=== PATIENT | male | born 1955 | race Caucasian/White ===

== ENCOUNTER 2023-12-03 22:33 | Emergency (ER) | payer BC ==
[2023-12-03] MEDS: SODIUM CHLORIDE 0.9% 1,000 ML IV STA (23:40)
[2023-12-03] MEDS: METOCLOPRAMIDE 10 MG/2 ML VIAL IVP STA (23:40)
[2023-12-03] MEDS: diphenhydrAMINE INJ 50 MG/ML VIAL IVP STA (23:40)
[2023-12-03] MEDS ORDERED: iohexoL-300 100 ML VIAL ONE (23:42)
[2023-12-03 23:43] LABS: BASOPHILS % (AUTO) 0.3 %; EOSINOPHILS % (AUTO) 0.3 %; HCT - HEMATOCRIT 35.5 % (42.0-52.0); HGB - HEMOGLOBIN 12.8 g/dL (14.0-18.0); LYMPHOCYTES # (AUTO) 0.7 10^3/uL (1.5-3.5); LYMPHOCYTES % (AUTO) 11.6 %; MEAN CORPUSCULAR HEMOGLOBIN 32.7 pg (27.0-31.0); MEAN CORPUSCULAR HGB CONC 36.1 g/dL (32.0-36.0); MEAN CORPUSCULAR VOLUME 90.6 fL (80.0-94.0); MEAN PLATELET VOLUME 9.8 fL (7.4-11.4); MONOCYTES # (AUTO) 0.9 10^3/uL (0.0-1.0); MONOCYTES % (AUTO) 13.3 %; NEUTROPHILS # (AUTO) 4.7 10^3/uL (1.5-6.6); PLT - PLATELET COUNT 132 10^3/uL (130-450); RED BLOOD COUNT 3.92 10^6/uL (4.70-6.10); RED CELL DISTRIBUTION WIDTH 11.9 % (12.0-15.0); WHITE BLOOD COUNT 6.4 x10^3/uL (4.8-10.8)
--- NOTE | 2023-12-03 23:47 | ED Physician Documentation ---
History of Present Illness - Stated complaint Stated Complaint: N/D, Headache - Chief complaint Chief Complaint: Neuro - History obtained from History obtained from: Patient, Family - Additonal information Additional information: 68-year-old male presents by private vehicle from home for approximately 24 hours of generalized headache, nausea, diarrhea, overall feeling poorly. 3 days ago patient went on a hiking trip to the [place]. Since his return he has felt poorly. Denies being bitten by any insects or ticks during this trip. Denies drinking unclean water. States that he has not felt like eating very much because every time he tries to eat he feels very nauseous and has lots of belching. Review of Systems Constitutional: denies: Fever, Chills Respiratory: denies: Dyspnea, Cough, Wheezing GI: reports: Nausea, Diarrhea. denies: Abdominal Pain, Vomiting, Constipation : denies: Dysuria, Frequency, Hesitancy Neurologic: reports: Headache. denies: Generalized weakness, Focal weakness, Numbness, Head injury PD PAST MEDICAL HISTORY - Past Medical History Past Medical History: Yes Cardiovascular: Hypertension - Past Surgical History Past Surgical History: Yes Ortho: Knee replacement, Other HEENT: Other - Present Medications Home Medications: Ambulatory Orders Medication Instructions Recorded Confirmed Ondansetron Odt [Zofran] 4 mg TL Q6H PRN #30 tablet 12/04/23 - Allergies Allergies/Adverse Reactions: Allergies Allergy/AdvReac Type Severity Reaction Status Date / Time No Known Drug Allergies Allergy Verified 12/03/23 22:47 - Social History Does the pt smoke?: No Smoking Status: Never smoker Does the pt drink ETOH?: Yes ETOH Use: Beer Does the pt have substance abuse?: No - Immunizations Immunizations are current?: No Immunizations: TDAP >10years/unknown - POLST Patient has POLST: No PD ED PE NORMAL - Vitals Vital signs reviewed: Yes - General General: Alert and oriented X 3, No acute distress, Well developed/nourished - HEENT HEENT: Atraumatic - Neck Neck: Supple, no meningeal sign - Cardiac Cardiac: RRR, Strong equal pulses - Respiratory Respiratory: No respiratory distress, Clear bilaterally - Abdomen Abdomen: Soft, Non tender, Non distended - Derm Derm: Normal color, Warm and dry, No rash - Neuro Neuro: Alert and oriented X 3, 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, No motor deficit, Normal speech Results - Vitals Vitals: Vital Signs - 24 hr 12/03/23 12/03/23 12/04/23 22:40 22:51 01:20 Temperature 36.7 C Heart Rate 70 70 63 Respiratory 16 16 Rate Blood Pressure 131/77 H 129/83 H O2 Saturation 99 100 12/04/23 02:26 Temperature Heart Rate 64 Respiratory 16 Rate Blood Pressure 125/85 H O2 Saturation 99 Oxygen O2 Source Room air - Labs Labs: Laboratory Tests 12/03/23 12/03/23 12/03/23 23:30 23:30 23:30 WBC 6.4 RBC 3.92 L Hgb 12.8 L Hct 35.5 L MCV 90.6 MCH 32.7 H MCHC 36.1 H RDW 11.9 L Plt Count 132 MPV 9.8 Neut # (Auto) 4.7 Lymph # (Auto) 0.7 L [place] # (Auto) 0.9 Eos # (Auto) 0.0 Baso # (Auto) 0.0 Absolute Nucleated RBC 0.00 Nucleated RBC % 0.0 PT 14.0 H INR 1.3 H Sodium 125 L Potassium 3.5 Chloride 92 L Carbon Dioxide 25 Anion Gap 8.0 BUN 9 Creatinine 0.7 Estimated GFR (MDRD) 113 Glucose 105 H Calcium 8.6 Total Bilirubin 0.8 AST 27 ALT 15 Alkaline Phosphatase 60 Troponin I High Sens Total Protein 5.9 L Albumin 3.4 Globulin 2.5 Albumin/Globulin Ratio 1.4 Lipase 32 Nasal Adenovirus (PCR) Nasal B. parapertussis DNA (PCR) Nasal Coronavir 229E PCR Nasal Coronavir HKU1 PCR Nasal Coronavir NL63 PCR Nasal Coronavir OC43 PCR Nasal Enterovir/Rhinovir PCR Nasal Influenza B PCR Nasal Influenza A PCR Nasal Parainfluen 1 PCR Nasal Parainfluen 2 PCR Nasal Parainfluen 3 PCR Nasal Parainfluen 4 PCR Nasal RSV (PCR) Nasal B.pertussis DNA PCR Nasal C.pneumoniae (PCR) Cy Human Metapneumo PCR Nasal M.pneumoniae (PCR) Nasal SARS-CoV-2 (PCR) 12/03/23 12/03/23 12/04/23 23:30 23:40 01:41 WBC RBC Hgb Hct MCV MCH MCHC RDW Plt Count MPV Neut # (Auto) Lymph # (Auto) [place] # (Auto) Eos # (Auto) Baso # (Auto) Absolute Nucleated RBC Nucleated RBC % PT INR Sodium 128 L Potassium Chloride Carbon Dioxide Anion Gap BUN Creatinine Estimated GFR (MDRD) Glucose Calcium Total Bilirubin AST ALT Alkaline Phosphatase Troponin I High Sens 12.8 Total Protein Albumin Globulin Albumin/Globulin Ratio Lipase Nasal Adenovirus (PCR) NOT DETECTED Nasal B. parapertussis DNA (PCR) NOT DETECTED Nasal Coronavir 229E PCR NOT DETECTED Nasal Coronavir HKU1 PCR NOT DETECTED Nasal Coronavir NL63 PCR NOT DETECTED Nasal Coronavir OC43 PCR NOT DETECTED Nasal Enterovir/Rhinovir PCR NOT DETECTED Nasal Influenza B PCR NOT DETECTED Nasal Influenza A PCR NOT DETECTED Nasal Parainfluen 1 PCR NOT DETECTED Nasal Parainfluen 2 PCR NOT DETECTED Nasal Parainfluen 3 PCR NOT DETECTED Nasal Parainfluen 4 PCR NOT DETECTED Nasal RSV (PCR) NOT DETECTED Nasal B.pertussis DNA PCR NOT DETECTED Nasal C.pneumoniae (PCR) NOT DETECTED Cy Human Metapneumo PCR NOT DETECTED Nasal M.pneumoniae (PCR) NOT DETECTED Nasal SARS-CoV-2 (PCR) NOT DETECTED PD Medical Decision Making - ED course Complexity details: reviewed results, re-evaluated patient, considered differential, d/w patient, d/w family ED course: Well-appearing patient with the above symptoms. Also reporting a rash on his lower extremities, however there is no discernible rash on exam. Abdomen soft, midepigastric tenderness to deep palpation. With new headache and reported symptoms CTs will be ordered as well as laboratory work. Reglan and Benadryl ordered for headache as well as a liter of IV saline. Will hold off on Toradol until CT brain results. Laboratory work notable for hyponatremia with sodium 125. Patient denies taking diuretics or other sodium wasting drugs. He states that he only takes a daily multivitamin supplement. Possible etiology of symptoms. CT brain and CT of the abdomen and pelvis negative for acute concerning findings. Patient did report feeling better after receiving fluids and headache medications. Toradol added for additional headache control. No previous blood work in our system, uncertain if this is a chronic or acute sodium level, however since patient is complaining of headache and nausea this is likely acute. Possibly from dehydration since symptoms began after a 3-day hiking trip. Sodium rechecked, has risen to 128. Patient states he feels better. No episodes of diarrhea while in the emergency department. Patient counseled on all lab and imaging findings as well as the importance of sodium levels. Patient is here on vacation from [place] and will not go back to his home until mid December. He was advised to follow-up with his primary care doctor when he goes back to [place], or if he has any change in symptoms or feels poorly again he should come back to the emergency department for recheck. Departure - Departure Disposition: Home, Self Care Clinical Impression: Hyponatremia, Headache, Nausea Condition: Stable Instructions: ED Hyponatremia Prescriptions: Ondansetron Odt [Zofran] 4 mg TL Q6H PRN #30 tablet PRN Reason: Nausea / Vomiting Comments: On your laboratory work today we did note that you had a low sodium of 125. After receiving fluids here it did increase to 128. I do not have any previous blood work from you to see if this is a new or chronic finding. Eat salty foods and things with electrolytes in them over the next several days. Nausea medication has also been sent to the [facility] in [place] If you notice that your symptoms are not improving or getting worse then I recommend coming back to the ER to recheck your sodium levels. Even if you feel better I do recommend following up with your primary care doctor when you get back home to [place]. Forms: PCP List Discharge Date/Time: 12/04/23 02:30
[2023-12-03 23:49] LABS: INR 1.3 (0.8-1.2)
[2023-12-04 00:22] LABS: ALBUMIN 3.4 g/dL (3.2-5.5); ALBUMIN/GLOBULIN RATIO 1.4 (1.0-2.2); BILIRUBIN,TOTAL 0.8 mg/dL (0.2-1.0); CALCIUM 8.6 mg/dL (8.5-10.3); CREATININE 0.7 mg/dL (0.6-1.3); POTASSIUM 3.5 mmol/L (3.5-4.5); TOTAL PROTEIN 5.9 g/dL (6.4-8.9)
[2023-12-04 00:37] LABS: B. PARAPERTUSSIS- RESP PCR PAN NOT DETECTED; B. PERTUSSIS- RESP PCR PANEL NOT DETECTED; C. PNEUMONIAE- RESP PCR PANEL NOT DETECTED; CORONAVIRUS 229E-RESP PCR NOT DETECTED; CORONAVIRUS HKU1-RESP PCR NOT DETECTED; CORONAVIRUS NL63-RESP PCR NOT DETECTED; CORONAVIRUS OC43-RESP PCR NOT DETECTED; HUMAN METAPNEUMOVIRUS NOT DETECTED; INFLUENZA A- RESP PCR PANEL NOT DETECTED; INFLUENZA B - RESP PCR PANEL NOT DETECTED; M. PNEUMONIAE- RESP PCR PANEL NOT DETECTED; PARAINFLUENZA VIRUS 1 NOT DETECTED; PARAINFLUENZA VIRUS 2 NOT DETECTED; PARAINFLUENZA VIRUS 3 NOT DETECTED; PARAINFLUENZA VIRUS 4 NOT DETECTED; RHINOVIRUS/ENTEROVIRUS NOT DETECTED; RSV- RESP PCR PANEL NOT DETECTED; SARS-CoV-2 -RESP PCR PANEL NOT DETECTED
[2023-12-04] MEDS: iohexoL-300 100 ML VIAL IVP ONE (00:53)
--- NOTE | 2023-12-04 01:01 | CT Report ---
PROCEDURE: Head WO INDICATIONS: headache, n/v x 24hrs TECHNIQUE: Noncontrast 4.5 mm thick angled axial sections acquired from the foramen magnum to the vertex. For r adiation dose reduction, the following was used: automated exposure control, adjustment of mA and/or kV according to patient size. COMPARISON: None. FINDINGS: Image quality: Excellent. CSF spaces: Basal cisterns are patent. No extra-axial fluid collections. Ventricles are normal in size and shape. Brain: No midline shift. No intracranial masses or hemorrhage. Richards-white matter interface is norm al. Skull and face: Calvarium and visualized facial bones are intact, without suspicious lesions. Sinuses: Visualized sinuses and mastoids are clear. IMPRESSION: No acute intracranial pathology. Source of current symptoms is not seen. Reviewed by: Aleksandr Butler MD on 12/04/2023 1:00 AM PDT Approved by: Aleksandr Butler MD on 12/04/2023 1:00 AM PDT Station ID: [id number]
--- NOTE | 2023-12-04 01:04 | CT Report ---
PROCEDURE: Abdomen/Pelvis W INDICATIONS: midepigastric pain, n/v x 24 hrs CONTRAST: Nonionic intravenous contrast, no oral contrast, 100 ML OMNI 300 TECHNIQUE: After the administration of intravenous contrast, a CT scan of the abdomen and pelvis was performed. Images were recorded and evaluated at appropriate window settings. Reformats: coronal and sagittal. F or radiation dose reduction, the following was used: automated exposure control, adjustment of mA and /or kV according to patient size. COMPARISON: None. FINDINGS: Image quality: Diagnostic. Lower chest: Unremarkable. Liver: No solid mass. Gallbladder: Normal. Biliary tree: No intrahepatic or extrahepatic dilation, accounting for age. Spleen: No splenomegaly. Pancreas: No pancreatic ductal dilation. Adrenals: No adrenal nodule. Kidneys and ureters: No hydronephrosis. No renal cystic lesion which requires follow up. No solid mas s. Stomach, bowel and peritoneum: No gastric or small bowel dilation. No abnormal wall thickening. No pa thologic free fluid. Lymph nodes: No central or retroperitoneal adenopathy. Vessels: No infrarenal aortic aneurysm. Patent portal vein. PELVIS Reproductive organs: Unremarkable. Bladder: No abnormal wall thickening, accounting for underdistention. Pelvic lymph nodes: No pelvic adenopathy by size criteria. Bones: No aggressive osseous abnormality. Other: No significant ventral or inguinal hernia. Normal appendix found right lower quadrant. IMPRESSION: Source of current symptoms is not found. Normal appendix identified right lower quadrant. Reviewed by: Aleksandr Butler MD on 12/04/2023 1:03 AM PDT Approved by: Aleksandr Butler MD on 12/04/2023 1:03 AM PDT Station ID: [id number]
[2023-12-04] MEDS: KETOROLAC 15 MG/ML VIAL IVP STA (01:16)
[2023-12-04 02:30] VITALS: BP 125/85; O2SAT 99
== END 2023-12-04 02:30 | disposition home or self-care (01) ==
LOC: ED 22:33
DX: E87.1 Hypo-osmolality and hyponatremia (principal); R51.9 Headache, unspecified; R11.0 Nausea; R10.13 Epigastric pain
CPT/HCPCS: 36415; 70450; 74177; 80053; 83690; 84295; 84484; 85025; 85610; 87633; 93005; 96361; 96374; 96375; 99284; J1200; J2765; Q9967